=== PATIENT | female | born 1980 | race Caucasian/White ===

== ENCOUNTER → 2017-04-19 | Outpatient (CLI) | payer BC, OTHER ==
[~2017-04-19] MED LIST: AZAT50TA44 PO; CIPR-344 PO; FLUC100T39 PO; FLUC200T56 PO; GADOBENATE 529MG/1ML 15ML VIAL IVP ONE; HYDR2TAB4 PO; HYDR2TAB74 PO; MELO-149 PO; MULT-885 PO; NS(*) 0.9% 10 ML VIAL 20 ML ONE; ONDA4TAB9 PO; ONDA4TAB97 PO; OXYC10TA67 PO; OXYC5TAB38 PO; PRED-1 PO; PRED20TA6 PO; PROM-110 PO; VENL37.594 PO
--- NOTE | 2017-04-19 10:09 | RADIOLOGY IMAGING REPORT ---
FACILITY: [facility] - [place] PATIENT NAME: Deanna Rea : 1980 MR: [id number] V: [id number] EXAM DATE: ORDERING PHYSICIAN: [facility] TECHNOLOGIST: Location: [facility] [place] Patient: Deanna Rea : 1980 Visit/Account:[id number] Date of Sevice: 04/19/2017 ABDOMEN W W/O CONTRAST HISTORY: Status post liver transplant with anastomotic biliary stricture ADDITIONAL HISTORY: None. TECHNIQUE: TECHNIQUE: Multiplanar multisequence magnetic resonance imaging of the abdomen without a nd with intravenous contrast. CONTRAST: 15 mL of MultiHance COMPARISON: MR abdomen December 07, 2014 FINDINGS: Visualized lung bases: Grossly unremarkable. Liver: There is no demonstration of hepatomegaly or hepatic masses. Gallbladder: Surgically removed Bile ducts: The common bile duct measures 6 mm in diameter at the head of the pancreas. No evidence of intrahepatic biliary ductal dilatation. Spleen: The spleen is decreased in size when compared to the prior MR now measuring 12.5 x 8.4 x 11.9 cm Adrenal glands: Negative. Pancreas: Negative. Kidneys: Tiny cysts in both kidneys Vessels/spaces/nodes: No bulky adenopathy or ascities. Visualized GI: Grossly unremarkable. Bones/soft tissues: Unremarkable. IMPRESSION: No demonstration of hepatomegaly or hepatic masses Patient is status post cholecystectomy Common bile duct measures 6 mm in diameter at the head of the pancreas although tapers smoothly. The re is no evidence of intrahepatic biliary ductal dilatation The spleen has decrease in size when compared the prior MR and no longer appears enlarged Report Dictated By: Chuyita Tyson MD at 04/19/2017 9:37 AM Report E-Signed By: Chuyita Tyson MD at 04/19/2017 10:05 AM WSN:[email or web address]
== END ==
LOC: MRI 00:58
DX: Z94.4 Liver transplant status (principal); N28.1 Cyst of kidney, acquired; Z90.49 Acquired absence of other specified parts of digestive tract
CPT/HCPCS: 74183; A9577

== ENCOUNTER → 2018-06-25 | Outpatient (CLI) | payer BC ==
[~2018-06-25] MED LIST changes: -GADOBENATE 529MG/1ML 15ML VIAL IVP ONE; -NS(*) 0.9% 10 ML VIAL 20 ML ONE
[2018-06-25 09:45] LABS: PLATELET COUNT, AUTOMATED 231 K/uL (150-450)
[2018-06-25 09:51] LABS: INR 0.93
== END ==
LOC: LAB 09:22
PROVIDERS: ATTEND Internal Medicine Gastroenterology
DX: Z51.81 Encounter for therapeutic drug level monitoring (principal); Z94.4 Liver transplant status
CPT/HCPCS: 36415; 80197; 82040; 82247; 82248; 82310; 82374; 82435; 82565; 82947; 84075; 84132; 84155; 84295; 84450; 84460; 84520; 85025; 85610

== ENCOUNTER → 2018-09-13 | Outpatient (CLI) | payer BC ==
[2018-09-13 10:43] LABS: PLATELET COUNT, AUTOMATED 281 K/uL (150-450)
[2018-09-13 11:07] LABS: LDL CHOLESTEROL 146 mg/dl
== END ==
LOC: LAB 10:25
PROVIDERS: ATTEND Family Medicine
DX: E55.9 Vitamin D deficiency, unspecified (principal); Z94.4 Liver transplant status; R63.5 Abnormal weight gain; E78.5 Hyperlipidemia, unspecified; I10 Essential (primary) hypertension; R73.01 Impaired fasting glucose
CPT/HCPCS: 36415; 82040; 82247; 82310; 82374; 82435; 82465; 82565; 82947; 83036; 83718; 84075; 84132; 84155; 84295; 84443; 84450; 84460; 84478; 84520; 85025

== ENCOUNTER → 2018-09-27 | Outpatient (CLI) | payer BC ==
--- NOTE | 2018-09-27 16:48 | RADIOLOGY IMAGING REPORT ---
FACILITY: [facility] - [place] PATIENT NAME: Deanna Rea : 1980 MR: [id number] V: [id number] EXAM DATE: ORDERING PHYSICIAN: AMAN CARDOZO TECHNOLOGIST: Location: [facility] [place] Patient: Deanna Rea : 1980 Visit/Account:[id number] Date of Sevice: 09/27/2018 THYROID HISTORY: Follow-up nodules COMPARISON: 11/07/2014 FINDINGS: SIZE: Normal. Right lobe: 4.7 x 1.1 x 1.6 cm Left lobe: 4.3 x 1.1 x 1.4 cm Isthmus: 4 mm PARENCHYMA: Homogeneous. NODULES: Right lobe: * There are two stable 3 mm hypodensities within the lower lobe. Left lobe: * There are two stable 3 mm hypodensities, one within the upper lobe and one within the lower lobe. Isthmus: * None discrete. VASCULARITY: Within normal limits. ADDITIONAL FINDINGS: None. IMPRESSION: Stable thyroid ultrasound, scattered subcentimeter hypodensities are present REFERENCE: 2015 [employer] [employer] Management Guidelines for Adult Patients with Thyroid Nodules and D ifferentiated Thyroid Cancer: The [place] [employer] Guidelines Task Force on Thyroid Nodul es and Differentiated Thyroid Cancer. SONOGRAPHIC PATTERNS: * Benign: Purely cystic nodules (no solid component); estimated risk of malignancy <1 percent; no bi opsy recommended. * Very Low Suspicion: Spongiform or partially cystic nodules without any of the sonographic features described in low, intermediate, or high suspicion patterns; estimated risk of malignancy <3 percent; consider FNA at > 2 cm (Observation without FNA is also a reasonable option). * Low Suspicion: Isoechoic or hyperechoic solid nodule, or partially cystic nodule with eccentric so lid areas, without microcalcification, irregular margin or ETE (extra-thyroidal extension), or taller than wide shape; estimated risk of malignancy 5-10 percent; recommend FNA at >1.5 cm. * Intermediate Suspicion: Hypoechoic solid nodule with smooth margins without microcalcifications, E TE (extra-thyroidal extension), or taller than wide shape; estimated risk of malignancy 10-20 percent ; recommend FNA at > 1 cm. * High Suspicion: Solid hypoechoic nodule or solid hypoechoic component of a partially cystic nodule with one or more of the following features: irregular margins (infiltrative, microlobulated), microc alcifications, taller than wide shape, rim calcifications with small extrusive soft tissue component, evidence of ETE (extra-thyroidal extension); estimated risk of malignancy >70-90 percent; recommend FNA at > 1 cm. NOTES: * Although a sonographically suspicious subcentimeter thyroid nodule without evidence of extrathyroi teena extension or sonographically suspicious lymph nodes may be observed with close sonographic follow -up rather than pursuing immediate FNA, patient age and preference may modify decision-making. * A > 50% interval increase in nodule volume and/or development of new suspicious sonographic featur es are felt to be a valid reasons for potential re-aspiration of a nodule previously shown to have be nign FNA cytology. Report Dictated By: Randy Perera at 09/27/2018 4:35 PM Report E-Signed By: Randy Perera at 09/27/2018 4:40 PM WSN:[email or web address]
--- NOTE | 2018-09-27 16:54 | RADIOLOGY IMAGING REPORT ---
[place] [facility] [place]: Deanna Rea : 1980 MR: [id number] V: [id number] EXAM DATE: ORDERING PHYSICIAN: AMAN CARDOZO TECHNOLOGIST: Location: [facility] Patient: Deanna Rea : 1980 Visit/Account:[id number] Date of Sevice: 09/27/2018 PELVIC INDICATION: Uterine enlargement, COMPARISON: 11/07/2014 FINDINGS: Uterus measures 8.2 x 3.7 x 4.0 cm and is homogeneous in echotexture. Double wall endometrial stripe measures 4 mm and is homogeneous. An IUD is seen centrally within the fundal portion of the endometrial lining. There is no free fluid in the cul-de-sac. Urinary bladder is empty. Pelvic vessels appear unremarkable on this examination. Right ovary measures 2.8 x 2.4 x 1.2 cm and shows normal blood flow and contains several small follic les. Left ovary measures 1.4 x 1.0 x 1.2 cm and shows normal blood flow and contains several small follicl es. IMPRESSION: 1. Pelvic ultrasound is within normal limits Report Dictated By: Randy Perera at 09/27/2018 4:40 PM Report E-Signed By: Randy Perera at 09/27/2018 4:45 PM WSN:[email or web address]
== END ==
LOC: US 00:46
PROVIDERS: ATTEND Family Medicine
DX: R04.1 Hemorrhage from throat (principal); D25.9 Leiomyoma of uterus, unspecified; M54.5 Low back pain
CPT/HCPCS: 76536; 76856